=== PATIENT | female | born 1970 | race Caucasian/White ===

== ENCOUNTER 2020-06-21 17:59 | Emergency (ER) | payer OTHER, SELFPAY ==
[2020-06-21] VITALS (20 sets, daily range): BP systolic 108–136; BP diastolic 65–95; PULSE 88–105; RESP 12–16; TEMP 36.5; O2SAT 98–100
--- NOTE | ~2020-06-21 | XR_ITS ---
EXAMINATION: XR chest 1V portable INDICATION: Body aches and COVID 19 symptoms TECHNIQUE: Portable AP chest at 2043 hours COMPARISON: None available FINDINGS: There are minimal opacities of the lower lung zones. No pleural effusion or pneumothorax is identified. The cardiomediastinal silhouette is normal. IMPRESSION: 1. Minimal opacities of the lung bases, consistent with atelectasis versus pneumonia. Reviewed, dictated and finalized at location A. [employer]UT[employer] ARCHITECT IMPRESSION: 1. Minimal opacities of the lung bases, consistent with atelectasis versus pneu monia.
--- NOTE | 2020-06-21 21:05 | ED.URI ---
HPI - URI/Sore Throat General Chief Complaint: Upper Respiratory Infection Stated Complaint: congestion, lost sense of taste Time Seen by Provider: 06/21/20 20:02 History of Present Illness HPI Narrative: Patient is a 50-year-old female who presents ER with concerns of a possible viral infection. She reports for the month of May she has been feeling fatigue as well as nauseated. She has had a 20 pound weight loss. Over the last 4 days she has lost her sense of smell and taste. She endorses sinus congestion without sore throat. No productive cough. She has occasional loose stools without any diarrhea today. No documented fevers. No known sick contacts. Patient also reports occasional palpitations but no chest pain or pressure. Related Data Allergies Allergy/AdvReac Type Severity Reaction Status Date / Time No Known Allergies Allergy Verified 06/21/20 20:06 Review of Systems Review of Systems: All systems reviewed & are unremarkable except as noted in HPI and below Constitutional: Constitutional: Denies chills, Reports fatigue and Denies fever(s) ENT: Reports nasal congestion and Denies sore throat Comments: No loss of taste/smell Cardiovascular: Cardiovascular: Denies chest pain, Reports rapid heart rate and Denies radiating jaw, neck or arm pain Respiratory: Respiratory: Denies cough, Denies dyspnea and Denies wheezing Gastrointestinal: Gastrointestinal: Denies abdominal pain, Reports diarrhea, Reports nausea and Denies vomiting Genitourinary: Genitourinary: Denies nocturia and Denies dysuria PMFSH Past Medical History Medical History (Updated 06/21/20 @ 23:57 by Patrick Motta MD) Anxiety Depression Surgical History Surgical History (Updated 06/21/20 @ 21:07 by Patrick Motta MD) No pertinent past surgical history Family History Family History (Updated 07/10/14 @ 09:32 by DOCTOR UNKNOWN) Father Depression Family history of heart disease in male family member before age 55 Mother Depression Family history of heart disease in male family member before age 55 Patient's mother is Sibling Hypertension Family history of heart disease in male family member before age 55 Social History Social History Smoking status: Heavy tobacco smoker Second hand tobacco smoke exposure: Yes Alcohol intake: never Gender identity (if verbalized by the patient): Female Exam Narrative: Exam Narrative: GENERAL: Well-appearing, well-nourished, and in no acute distress. HEAD: Normocephalic, atraumatic. CHEST: Clear to auscultation. No respiratory distress. HEART: Regular rate and rhythm. Normal peripheral pulses. ABDOMEN: Soft, nontender, nondistended. EXTREMITIES: Normal range of motion. No edema. SKIN: Warm, dry, no rash. NEURO: Alert and oriented x3. PSYCH: Normal mood and affect. Course Course Emergency Course: Patient informed of results. She is aware Covid is pending. Discussed case with Dr. Tran the patient's PCP. Will have patient follow-up and she should contact the office Wednesday. Vital Signs Vital signs: Vital Signs Temperature 97.7 F 06/21/20 18:12 Pulse Rate 105 H 06/21/20 18:12 Respiratory Rate 16 06/21/20 18:12 Blood Pressure 117/86 06/21/20 18:12 Pulse Oximetry 98 06/21/20 18:12 Temperature 97.7 F 06/21/20 18:12 Pulse Rate 88 06/21/20 21:27 Respiratory Rate 12 06/21/20 21:27 Blood Pressure 123/71 06/21/20 23:31 Pulse Oximetry 99 06/21/20 23:32 MDM - URI/Sore Throat Lab Data Result diagrams: 06/21/20 21:20 06/21/20 21:20 Labs: Lab Results 06/21/20 06/21/20 06/21/20 Range/Units 21:20 21:20 21:20 WBC 11.6 H (4.5-10.0) K/mm3 RBC 3.68 L (4.2-5.4) M/mm3 Hgb 11.2 L (12.0-15.0) g/dL Hct 33.2 L (37.0-47.0) % MCV 90.2 (80-100) fl MCH 30.4 (26-34) pg MCHC 33.7 (32-36) g/dl RDW 14.5 (11.5-14.5) % Plt Count 485 H (150-375)
[2020-06-21 21:26] LABS: Hematocrit 33.2 % (37.0-47.0); Hemoglobin 11.2 g/dL (12.0-15.0); Mean Corpuscular HGB Conc 33.7 g/dl (32-36); Mean Corpuscular Hemoglobin 30.4 pg (26-34); Mean Corpuscular Volume 90.2 fl (80-100); Platelet Count Result 485 k/mm3 (150-375); Red Blood Count 3.68 M/mm3 (4.2-5.4); Red Cell Distribution Width 14.5 % (11.5-14.5); White Blood Count 11.6 K/mm3 (4.5-10.0)
[2020-06-21] MEDS: SODIUM CHLORIDE 0.9% IV 1,000 ML 999 ML IV CONT (21:26)
--- NOTE | 2020-06-21 21:33 | PC.NURSE ---
Assumed care of Pt. at this time. Report from JULIÁN Petit
[2020-06-21 21:38] LABS: Anion Gap 5 mmol/L (8-16); Blood Urea Nitrogen 17 mg/dL (7-17); Calcium 9.8 mg/dL (8.4-10.2); Carbon Dioxide 23 mmol/L (22-30); Chloride 111 mmol/L (98-107); Estimated CRCL calculation 98 ml/min; Estimated Glomerular Filt Rate > 60; Glucose 90 mg/dL (65-105); Lymphocytes Absolute Manual 6.49 K/mm3 (1.1-4.5); Monocytes Absolute Manual 1.04 K/mm3 (0.1-0.90); Monocytes Percent Manual 9 % (3-9); Neutrophils Percent Manual 35 % (46-73); Platelet Estimate Increased (Adequate); Potassium 3.4 mmol/L (3.4-5.0); Sodium 139 mmol/L (137-145); Total Cells Counted 100
[2020-06-21 22:26] LABS: Thyroid Stimulating Hormone Reflex < 0.015 uIU/mL (0.465-4.68)
[2020-06-23 00:20] LABS: SARS-CoV-2 RNA PCR Positive
== END 2020-06-22 | disposition home or self-care (01) ==
PROVIDERS: Emergency Provider Emergency Medicine; PCP Internal Medicine
DX: U07.1 COVID-19 (principal); E05.90 Thyrotoxicosis, unspecified without thyrotoxic crisis or storm; R91.8 Other nonspecific abnormal finding of lung field; F17.200 Nicotine dependence, unspecified, uncomplicated
CPT/HCPCS: 36415; 71045; 80048; 84439; 84443; 85025; 96360; 99283; C9803; J7030; U0003; U0005

== ENCOUNTER 2021-10-03 15:08 | Emergency (ER) | payer OTHER, SELFPAY ==
[2021-10-03 15:18] VITALS: BP 128/86; PULSE 96; RESP 28; TEMP 37.2; O2SAT 96
--- NOTE | 2021-10-03 15:41 | ED.URI ---
HPI - URI/Sore Throat General Chief Complaint: Upper Respiratory Infection Stated Complaint: sinus infection Time Seen by Provider: 10/03/21 15:31 Source: patient and RN notes reviewed Mode of arrival: ambulatory Limitations: no limitations History of Present Illness HPI Narrative: Patient presents today with a 5-day history of facial pressure, postnasal drip, intermittent cough, and fever up to 99. Denies sore throat, shortness of breath. Reports symptoms have been worsening since onset. Patient has been taking Sudafed, which does provide some relief, but reports she does not like the side effects. Denies any history of sinus surgeries or chronic sinus issues. Reports she gets an infection like this every year and is requesting a prescription for erythromycin. MD elicited complaint: nasal congestion and sinus pain Related Data Home Medications Medication Instructions Recorded Confirmed buprenorphine-naloxone [Zubsolv] 1 tablet SUBLINGUAL DAILY 10/03/21 10/03/21 diazepam 10 mg PO TID PRN 10/03/21 10/03/21 methimazole 5 mg PO DAILY 10/03/21 10/03/21 sertraline [Zoloft] 50 mg PO DAILY 10/03/21 10/03/21 Allergies Allergy/AdvReac Type Severity Reaction Status Date / Time acetaminophen [From [place]] Allergy Itching Verified 10/03/21 15:31 hydrocodone [From [place]] Allergy Itching Verified 10/03/21 15:31 Review of Systems Review of Systems: CONSTITUTIONAL: Denies body aches, fever, chills, or sweats. EYES: Denies visual changes, redness, or discharge. ENT: Denies rhinorrhea, sore throat, or otalgia.+ Congestion, sinus pressure CARDIOVASCULAR: Denies chest pain, palpitations, or edema. RESPIRATORY: Denies dyspnea.+ Cough GASTROINTESTINAL: Denies abdominal pain, nausea, vomiting, or diarrhea. GENITOURINARY: Denies dysuria or hematuria. SKIN: Denies rash, itching, or wounds. MUSCULOSKELETAL: Denies back pain, joint pain, or myalgia. NEUROLOGIC: Denies headache, numbness, tingling, or weakness. PSYCH: Denies depression or anxiety. PMFSH Past Medical History Medical History Anxiety Depression Surgical History Surgical History No pertinent past surgical history Family History Family History Father Depression Family history of heart disease in male family member before age 55 Mother Depression Family history of heart disease in male family member before age 55 Patient's mother is Sibling Hypertension Family history of heart disease in male family member before age 55 Social History Social History Smoking status: Heavy tobacco smoker Second hand tobacco smoke exposure: Yes Alcohol intake: never Gender identity (if verbalized by the patient): Female Comments At time of signature, I have reviewed and agree with nursing past medical, surgical, social and family history unless otherwise noted. Please see nursing chart for further information. There is no relevant family history pertinent to the presenting complaint Exam Narrative: GENERAL: Well-appearing, well-nourished, and in no acute distress. HEAD: Normocephalic, atraumatic. EYES: EOMI. No redness or drainage. Conjunctivae normal. ENT: Mucous membranes pink and moist. Nares clear. frontal and maxillary sinus tenderness. Bilateral swollen nasal turbinates with clear drainage. TMs normal bilaterally. Throat normal. Uvula midline. NECK: Normal AROM. Supple. No lymphadenopathy. CHEST: No respiratory distress. Clear to auscultation. HEART: Regular rate and rhythm. No murmur appreciated. Normal peripheral pulses. EXTREMITIES: Normal range of motion. No edema. SKIN: Warm, dry, no rash. Capillary refill normal. Normal skin turgor. NEURO: No focal deficits. Alert and oriented x3. Gait steady
== END 2021-10-03 15:49 | disposition home or self-care (01) ==
PROVIDERS: Emergency Provider Nurse Practitioner
DX: J30.2 Other seasonal allergic rhinitis (principal); F41.9 Anxiety disorder, unspecified; F32.9 Major depressive disorder, single episode, unspecified; F17.200 Nicotine dependence, unspecified, uncomplicated
CPT/HCPCS: 99213; G0463

== ENCOUNTER 2023-06-07 06:41 | Outpatient (CLI) | payer OTHER, SELFPAY ==
--- NOTE | ~2023-06-07 | CT_ITS ---
EXAMINATION: CT orbit BI wo/w con DATE: 06/07/2023 07:10 INDICATION: Diplopia. TECHNIQUE: Computed tomography (CT) of the head was performed without and with 75 mL Omnipaque intrav enous contrast. Orbits The dose-length product was 405.76 mGy-cm. COMPARISON: None FINDINGS: The ocular globes, extraocular muscles, and optic nerves are normal. There is no abnormal m ass. There is mild mucosal thickening in the paranasal sinuses. There is no cerebral aneurysm. IMPRESSION: 1. Normal orbits. Reviewed, dictated and finalized at location A. RVISOR DOPING IMPRESSION: 1. Normal orbits.
[2023-06-07 07:08] LABS: Estimated Glomerular Filt Rate > 60
== END 2023-06-07 06:42 | disposition home or self-care (01) ==
PROVIDERS: Visit Provider Specialist
DX: H53.2 Diplopia (principal)
CPT/HCPCS: 70482; Q9967